=== PATIENT | male | born 1960 | race American Indian/Alaskan Native ===

== ENCOUNTER 2017-06-21 19:28 | Emergency (ER) | payer MEDICARE, MEDICAID, OTHER ==
[2017-06-21] MEDS ORDERED: Sodium Chloride 0.9% 10 ML Syringe FLUSH PRN (19:55)
[2017-06-21] MEDS ORDERED: Acetaminophen 325 MG Tab, 50 Tab Bulk Bottle PO ONE (21:51)
[2017-06-21] MEDS ORDERED: Acetaminophen 500 MG Tab PO ONE (21:55)
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
[2017-06-21 22:57] VITALS: BP 134/92
--- NOTE | 2017-06-22 08:51 | CR ---
Chest 1V Frontal HISTORY: Chest pain. Comparison: 02/16/2015. FINDINGS: Cardiac size and pulmonary vessels are normal. The lungs are clear. IMPRESSION: Negative AP chest.
== END 2017-06-21 22:58 | disposition home or self-care (01) ==
LOC: JP.ED 19:28
DX: R55 Syncope and collapse (principal); E10.9 Type 1 diabetes mellitus without complications; R51 Headache; Z79.84 Long term (current) use of oral hypoglycemic drugs; Z79.899 Other long term (current) drug therapy
CPT/HCPCS: 36415; 70450; 71010; 72125; 80053; 80305; 81001; 84484; 85025; 93005; 99284; A9270; 93010; 99283

== ENCOUNTER 2019-12-27 14:08 | Emergency (ER) | payer MEDICARE, MEDICAID ==
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
[2019-12-27 15:30] VITALS: PULSE 84
[2019-12-27] MEDS ORDERED: Sodium Chloride 0.9% 1,000 ML IV SCH (16:15)
[2019-12-27] MEDS ORDERED: diphenhydrAMINE 50 MG/ML SDV IVPUSH ONE (17:04)
[2019-12-27 17:12] VITALS: BP 137/88
[2019-12-27] MEDS ORDERED: Sodium Chloride 0.9% 10 ML Syringe FLUSH ONE (17:23)
[2019-12-27] MEDS ORDERED: Iopamidol 612 MG/ML 150 ML Bottle IV SCH (17:30)
--- NOTE | 2019-12-27 18:35 | CRLCT ---
INDICATION: abdominal pain, cramping CT ABDOMEN AND PELVIS WITH CONTRAST TECHNIQUE: Multidetector CT imaging was performed through the abdomen and pelvis following intravenous contrast administration using 150 mL Isovue-300. Coronal and sagittal reconstructions were generated. COMPARISON: None. FINDINGS: Lower chest: Lung bases are clear. Liver: Diffuse fatty infiltration of the liver. Gallbladder and bile ducts: No gallbladder wall thickening or calcified gallstones. No biliary dilation identified. Pancreas: Unremarkable. Spleen: Normal. Adrenals: No nodules or masses. Kidneys, ureters, and urinary bladder: Tiny cortical cyst of the left kidney. No solid renal masses or hydronephrosis. Limited evaluation of the bladder due to artifact from hip prostheses. No obvious bladder mass or definite wall thickening. Gastrointestinal tract: Normal caliber bowel without wall thickening or obstruction. The appendix is normal. Vascular structures: Normal caliber abdominal aorta with minimal atherosclerotic calcifications. Peritoneum: No free air, abscess, or significant free fluid. Lymph nodes: No pathologically enlarged nodes identified. Reproductive organs: Prostate region obscured by artifact from hip prostheses. Bones: Spinal degenerative changes. Bilateral hip prostheses. IMPRESSION: 1. No acute abnormality identified. No cause for the patient`s symptoms is demonstrated. 2. Nonacute findings as detailed above. Please note that all CT scans at this facility use dose modulation, iterative reconstruction, and\or weight-based dosing when appropriate to reduce radiation to as low as reasonably achievable. ONEAL FREEMAN MD [facility] Dictated by Aditya Freeman MD @ 12/27/2019 6:31:24 PM Dictated by: Aditya Freeman MD @ 12/27/2019 18:33:31 (Electronically Signed) [facility]ITAL[facility]ukhsana
--- NOTE | 2019-12-29 10:26 | CR ---
CHEST: 2 view CLINICAL HISTORY:Abdominal pain COMPARISON:2017 FINDINGS: The heart size, pulmonary vascularity and hilar structures are normal. No infiltrate effusion or pneumothorax is seen. IMPRESSION: No acute cardiopulmonary process.
== END 2019-12-27 18:42 | disposition home or self-care (01) ==
LOC: JP.ED 14:08
DX: R25.2 Cramp and spasm (principal); E11.9 Type 2 diabetes mellitus without complications; F31.9 Bipolar disorder, unspecified; E66.9 Obesity, unspecified; Z68.36 Body mass index [BMI] 36.0-36.9, adult; Z79.899 Other long term (current) drug therapy; Z87.891 Personal history of nicotine dependence
CPT/HCPCS: 36415; 71046; 74177; 80053; 83735; 85025; 85379; 99283; 99285; J7030; J7050; Q9967

== ENCOUNTER 2019-12-29 12:15 | Inpatient (IN) | payer MEDICARE, MEDICAID ==
[2019-12-29] MEDS ORDERED: OLANZapine 5 MG Tab PO ONE (12:48)
[2019-12-29] MEDS ORDERED: Ondansetron 4 MG Tab.DIS PO ONE (12:51)
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
[2019-12-29] MEDS ORDERED: Sodium Chloride 0.9% 1,000 ML IV ONE (13:11)
[2019-12-29] MEDS ORDERED: Escitalopram 20 MG Tab PO ONE (13:21)
[2019-12-29] MEDS ORDERED: LORazepam 1 MG Tab PO ONE (13:48)
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
[2019-12-29] MEDS ORDERED: Ondansetron 4 MG Tab.DIS PO PRN (14:27)
[2019-12-29] MEDS ORDERED: Ondansetron 4 MG/2 ML SDV IV PRN (14:27)
[2019-12-29] MEDS ORDERED: Acetaminophen 325 MG Tab PO PRN (14:27)
[2019-12-29] MEDS ORDERED: LORazepam 2 MG/ML SDV IVPUSH PRN (14:27)
[2019-12-29] MEDS ORDERED: Magnesium Hydroxide 400 MG/5 ML Susp 30 ML Cup PO PRN (14:27)
[2019-12-29] MEDS: Sodium Chloride 0.9% 1,000 ML IV SCH ×2 (15:10→23:10)
[2019-12-29] MEDS ORDERED: Pneumococcal Polyvalent-23 Vaccine 0.5 ML SDV IM ONE (15:30)
[2019-12-29] MEDS: LORazepam 1 MG Tab PO SCH (20:15)
[2019-12-29] MEDS: OLANZapine 5 MG Tab PO SCH (20:15)
[2019-12-30] MEDS: OLANZapine 5 MG Tab PO SCH ×2 (08:12→21:20)
[2019-12-30] MEDS: Escitalopram 20 MG Tab PO SCH (08:12)
[2019-12-30] MEDS: LORazepam 1 MG Tab PO SCH ×2 (08:14→21:20)
--- NOTE | 2019-12-30 09:35 | PCM.PN ---
- General Info Date of Service: 12/30/19 Subjective Update: No acute events overnight. Strength is a little better today. He does continue to complain of generalized abdominal pain, mostly in the lateral portions. He says this is a crampy pain and seems to come and go in a spasm- like wave. The pain is less intense today but still moderate in severity. No significant nausea. No vomiting. No fevers. Sodium level has improved with IV fluid hydration and is now in the normal range. Functional Status: Reports: Pain Controlled, Tolerating Diet - Review of Systems General: Denies: Fever Gastrointestinal: Reports: Abdominal Pain - Patient Data Vitals - Most Recent: Last Vital Signs Temp 36.3 C 12/30/19 07:00 Pulse 80 12/30/19 07:00 Resp 16 12/30/19 07:00 BP 127/78 12/30/19 07:00 Pulse Ox 98 12/30/19 07:00 Weight - Most Recent: 102.143 kg I&O - Last 24 Hours: Intake & Output 12/29/19 12/30/19 12/30/19 22:59 06:59 14:59 Intake Total 720 1990 608 Output Total 3000 1000 1200 Balance -2280 990 -592 Lab Results Last 24 Hours: Laboratory Results - last 24 hr 12/29/19 12/29/19 12/29/19 Range/Units 12:45 12:48 12:48 Sodium 116 L* (140-148) mmol/L Potassium 4.3 (3.6-5.2) mmol/L Chloride 84 L (100-108) mmol/L Carbon Dioxide 23 (21-32) mmol/L Anion Gap 13.3 (5.0-14.0) mmol/L BUN 8 (7-18) mg/dL Creatinine 0.8 (0.8-1.3) mg/dL Est Cr Clr Drug Dosing 91.93 mL/min Estimated GFR (MDRD) > 60 (>60) Glucose 116 H (74-106) mg/dL Calcium 8.7 (8.5-10.1) mg/dL Phosphorus (2.5-4.9) mg/dL Magnesium 1.9 (1.8-2.4) mg/dL Vitamin D 25-Hydroxy 24.1 L (30-100) ng/mL Urine Color (YELLOW) Urine Appearance (CLEAR) Urine pH (5.0-8.0) Ur Specific [place] (1.008-1.030) Urine Protein (NEGATIVE) mg/dL Urine Glucose (UA) (NEGATIVE) mg/dL Urine Ketones (NEGATIVE) mg/dL Urine Occult Blood (NEGATIVE) Urine Nitrite (NEGATIVE) Urine Bilirubin (NEGATIVE) Urine Urobilinogen (0.2-1.0) EU/dL Ur Leukocyte Esterase (NEGATIVE) Urine RBC (0-5) Urine WBC (0-5) Ur Epithelial Cells Amorphous Sediment Urine Bacteria Urine Mucus 12/29/19 12/29/19 12/29/19 Range/Units 12:48 13:06 18:56 Sodium 127 L (140-148) mmol/L Potassium (3.6-5.2) mmol/L Chloride (100-108) mmol/L Carbon Dioxide (21-32) mmol/L Anion Gap (5.0-14.0) mmol/L BUN (7-18) mg/dL Creatinine (0.8-1.3) mg/dL Est Cr Clr Drug Dosing mL/min Estimated GFR (MDRD) (>60) Glucose (74-106) mg/dL Calcium (8.5-10.1) mg/dL Phosphorus 2.8 (2.5-4.9) mg/dL Magnesium (1.8-2.4) mg/dL Vitamin D 25-Hydroxy (30-100) ng/mL Urine Color Yellow (YELLOW) Urine Appearance Clear (CLEAR) Urine pH 7.0 (5.0-8.0) Ur Specific [place] 1.010 (1.008-1.030) Urine Protein Negative (NEGATIVE) mg/dL Urine Glucose (UA) Negative (NEGATIVE) mg/dL Urine Ketones Trace H (NEGATIVE) mg/dL Urine Occult Blood Trace-intact H (NEGATIVE) Urine Nitrite Negative (NEGATIVE) Urine Bilirubin Negative (NEGATIVE) Urine Urobilinogen 0.2 (0.2-1.0) EU/dL Ur Leukocyte Esterase Negative (NEGATIVE) Urine RBC 0-5 (0-5) Urine WBC 0-5 (0-5) Ur Epithelial Cells Rare Amorphous Sediment Not seen Urine Bacteria Few Urine Mucus Not seen 12/30/19 Range/Units 05:20 Sodium 138 L (140-148) mmol/L Potassium 4.3 (3.6-5.2) mmol/L Chloride 104 (100-108) mmol/L Carbon Dioxide 24 (21-32) mmol/L Anion Gap 14.3 H (5.0-14.0) mmol/L BUN 8 (7-18) mg/dL Creatinine 0.8 (0.8-1.3) mg/dL Est Cr Clr Drug Dosing 91.93 mL/min Estimated GFR (MDRD) > 60 (>60) Glucose 103 (74-106) mg/dL Calcium 7.7 L (8.5-10.1) mg/dL Phosphorus (2.5-4.9) mg/dL Magnesium (1.8-2.4) mg/dL Vitamin D 25-Hydroxy (30-100) ng/mL Urine Color (YELLOW) Urine Appearance (CLEAR) Urine pH (5.0-8.0) Ur Specific [place] (1.008-1.030) Urine Protein (NEGATIVE) mg/dL Urine Glucose (UA) (NEGATIVE) mg/dL Urine Ketones (NEGATIVE) mg/dL Urine Occult Blood (NEGATIVE) Urine Nitrite (NEGATIVE) Urine Bilirubin (NEGATIVE) Urine Urobilinogen (0.2-1.0) EU/dL Ur Leukocyte Esterase (NEGATIVE) Urine RBC (0-5) Urine WBC (0-5) Ur Epithelial Cells Amorphous Sediment Urine Bacteria Urine Mucus Med Orders - Current: Current Medications Acetaminophen (Tylenol) 650 mg PO Q4H PRN PRN Reason: Pain (Mild 1-3)/fever Escitalopram Oxalate (Lexapro) 20 mg PO DAILY [facility] Last Admin: 12/30/19 08:12 Dose: 20 mg Ibuprofen (Motrin) 600 mg PO Q6H PRN PRN Reason: Pain (moderate 4-6) Lorazepam (Ativan) 1 mg PO BID [facility] Last Admin: 12/30/19 08:14 Dose: 1 mg Lorazepam (Ativan) 0.5 mg IVPUSH Q4H PRN PRN Reason: Nausea/Vomiting Magnesium Hydroxide (Milk Of Magnesia) 30 ml PO Q12H PRN PRN Reason: Constipation Olanzapine (Zyprexa) 5 mg PO DAILY [facility] Last Admin: 12/30/19 08:12 Dose: 5 mg Olanzapine (Zyprexa) 10 mg PO BEDTIME [facility] Last Admin: 12/29/19 20:15 Dose: 10 mg Ondansetron HCl (Zofran Odt) 4 mg PO Q6H PRN PRN Reason: Nausea able to take PO Ondansetron HCl (Zofran) 4 mg IV Q6H PRN PRN Reason: Nausea/Vomiting Pneumococcal Polyvalent Vaccine (Pneumovax 23) 0.5 ml IM .ONCE ONE Stop: 12/30/19 11:01 Senna/Docusate Sodium (Senna Plus) 1 tab PO BID PRN PRN Reason: Constipation Discontinued Medications Escitalopram Oxalate (Lexapro) 20 mg PO ONETIME ONE Stop: 12/29/19 13:22 Last Admin: 12/29/19 13:30 Dose: 20 mg Sodium Chloride (Normal Saline) 1,000 mls @ 1,000 mls/hr IV .BOLUS ONE Stop: 12/29/19 14:10 Last Admin: 12/29/19 13:31 Dose: 1,000 mls/hr Sodium Chloride (Normal Saline) 1,000 mls @ 125 mls/hr IV ASDIRECTED NICKY Last Admin: 12/29/19 23:10 Dose: 125 mls/hr Lorazepam (Ativan) 1 mg PO ONETIME ONE Stop: 12/29/19 13:49 Last Admin: 12/29/19 13:55 Dose: 1 mg Olanzapine (Zyprexa) 5 mg PO ONETIME ONE Stop: 12/29/19 12:49 Last Admin: 12/29/19 12:58 Dose: 5 mg Ondansetron HCl (Zofran Odt) 4 mg PO ONETIME ONE Stop: 12/29/19 12:52 Last Admin: 12/29/19 12:57 Dose: 4 mg - Exam Quality Assessment: No: Supplemental Oxygen General: Alert, Oriented, Cooperative, No Acute Distress Lungs: Normal Respiratory Effort Cardiovascular: Regular Rate, Regular Rhythm GI/Abdominal Exam: Soft, No Distention, Tender (both flanks ) Extremities: No Pedal Edema Psy/Mental Status: Alert, Normal Affect Sepsis Event Note - Evaluation Sepsis Screening Result: No Definite Risk - Focused Exam Vital Signs: Vital Signs Temp Pulse Resp BP BP Pulse Ox 12/30/19 07:00 36.3 C 80 16 127/78 98 12/30/19 03:08 36.6 C 73 18 125/81 98 12/29/19 22:32 36.4 C 76 16 114/65 96 Date Exam was Performed: 12/30/19 Time Exam was Performed: 14:28 - Problem List & Annotations (1) Hyponatremia SNOMED Code(s): 90475882 Code(s): E87.1 - HYPO-OSMOLALITY AND HYPONATREMIA Status: Acute Current Visit: Yes - Problem List Review Problem List Initiated/Reviewed/Updated: Yes - My Orders Last 24 Hours: My Active Orders 12/29/19 13:55 Resuscitation Status Routine 12/29/19 14:27 Patient Status [ADT] Routine Antiembolic Devices [RC] .Routine Intake and Output [RC] QSHIFT Notify Provider Vital Signs [RC] ASDIRECTED Oxygen Therapy [RC] PRN Up With Assistance [RC] ASDIRECTED VTE/DVT Education [RC] Per Unit Routine Vital Signs [RC] Q4H Acetaminophen [Tylenol] 650 mg PO Q4H PRN Docusate Sodium/Sennosides [Senna Plus] 1 tab PO BID PRN LORazepam [Ativan] 0.5 mg IVPUSH Q4H PRN Magnesium Hydroxide [Milk of Magnesia] 30 ml PO Q12H PRN Ondansetron [Zofran ODT] 4 mg PO Q6H PRN Ondansetron [Zofran] 4 mg IV Q6H PRN Sequential Compression Device [OM.PC] Routine 12/29/19 21:00 LORazepam [Ativan] 1 mg PO BID OLANZapine [ZyPREXA] 10 mg PO BEDTIME 12/29/19 Dinner Regular Diet [DIET] 12/30/19 09:00 Escitalopram [Lexapro] 20 mg PO DAILY OLANZapine [ZyPREXA] 5 mg PO DAILY 12/30/19 09:33 Ibuprofen [Motrin] 600 mg PO Q6H PRN tiZANidine [Zanaflex] 4 mg PO Q6H PRN Convert IV to Saline Lock [OM.PC] Routine 12/30/19 11:00 Pneumococcal Polyvalent-23 Vac [Pneumovax 23] 0.5 ml IM .ONCE ONE 12/31/19 05:00 BASIC METABOLIC PANEL,BMP [CHEM] Timed CBC W/O DIFF,HEMOGRAM [HEME] Timed (1) - Plan Plan:: ASSESSMENT AND PLAN - Hyponatremia-level has improved with IV fluid hydration and restarting his usual home medications. Symptoms improving but still having some muscle spasms which limit his ability to get around. -Saline lock IV -Trial of muscle relaxer -Recheck sodium in the morning -Continue home medications Maintenance issues - - DVT prophylaxis -mechanical - GI prophylaxis -not indicated - Nutrition -regular Disposition -I would anticipate discharge home after the hospital stay, likely tomorrow if stable overnight Primary care physician - [facility] Denys Mo M.D.
[2019-12-30] MEDS ORDERED: Pneumococcal Polyvalent-23 Vaccine 0.5 ML SDV IM ONE (11:00)
[2019-12-30] MEDS: Ibuprofen 600 MG Tab PO PRN ×2 (11:57→21:22)
[2019-12-30] MEDS: tiZANidine 4 MG Tab PO PRN (11:58)
[2019-12-31 08:24] VITALS: BP 145/85; PULSE 88
[2019-12-31] MEDS: tiZANidine 4 MG Tab PO PRN (08:24)
[2019-12-31] MEDS: LORazepam 1 MG Tab PO SCH (08:24)
[2019-12-31] MEDS: Ibuprofen 600 MG Tab PO PRN (08:24)
[2019-12-31] MEDS: Escitalopram 20 MG Tab PO SCH (08:25)
[2019-12-31] MEDS: OLANZapine 5 MG Tab PO SCH (08:26)
--- NOTE | 2019-12-31 10:29 | PCM.DCSUM1 ---
Discharge Summary - Hospital Course Brief History: 59-year-old male with history of depression and anxiety who presented with nausea and abdominal cramps. He was admitted for management of hyponatremia thought secondary to withdrawal from his home medications including SSRI and benzodiazepines. Diagnosis: Stroke: No - Discharge Data Discharge Date: 12/31/19 Discharge Disposition: Home, Self-Care 01 Condition: Good - Referral to Home Health Primary Care Physician: PCP None - Discharge Diagnosis/Problem(s) (1) Hyponatremia SNOMED Code(s): 07227765 ICD Code: E87.1 - HYPO-OSMOLALITY AND HYPONATREMIA Status: Acute - Patient Summary/Data Hospital Course: Ismael presented to the emergency room with nausea, vomiting and abdominal cramping. Symptoms had progressed over the past several days. He was unable to keep anything down so he came back to the emergency room for evaluation. Work-up in the emergency room did reveal a sodium level of 116 which was down from 125 3 days prior. He appeared to be euvolemic or close to it based on examination. Previous extensive work-up had been fairly unremarkable. There was concern that he may be in a withdrawal syndrome from his medications which she had ran out of about 1 week prior to presentation. We restarted his usual home medications and gave him some IV fluids. His sodium level steadily david over the next 24 hours and then normalized. His nausea resolved fairly quickly. His abdominal cramps did continue but by the morning of discharge had completely resolved. His sodium level is normal. He tolerated a regular diet. He has been up and walking around without difficulty. He does have refills of his usual home medications available at this time. I believe he is stable and safe for discharge at this point. - Patient Instructions Diet: Regular Diet as Tolerated Activity: As Tolerated Driving: May Drive Today Showering/Bathing: May Shower Notify Provider of: Fever, Increased Pain, Nausea and/or Vomiting Other/Special Instructions: 1. You were in the hospital for management of a low sodium level that I believe was caused because of withdrawal from your usual home medications. Your sodium level and symptoms of nausea and muscle cramps improved quickly with hydration, normalization of your sodium level and restarting your usual home medications. It will be important in the future to do your very best to avoid running out of the medications to avoid a return of these symptoms. 2. During the emergency room work-up you had a thorough work- up including laboratory studies, chest x-ray and a CT scan of the abdomen and pelvis. At this time there is no evidence for leukemia, intra-abdominal cancer or lung cancer based on our available information. - Discharge Plan *PRESCRIPTION DRUG MONITORING PROGRAM REVIEWED*: Not Applicable *COPY OF PRESCRIPTION DRUG MONITORING REPORT IN PATIENT BURT: Not Applicable Home Medications: Home Meds LORazepam 1 mg PO BID 10/15/13 [History] Triamcinolone Acetonide [Kenalog 0.1% Crm] 1 applic TOP BID PRN 10/15/13 [ History] Escitalopram [Lexapro] 20 mg PO DAILY 12/27/19 [History] OLANZapine [Olanzapine] 5 mg PO DAILY 12/27/19 [History] OLANZapine [Olanzapine] 10 mg PO BEDTIME 12/29/19 [History] Oxygen Therapy Mode: Room Air Patient Handouts: Muscle Cramps and Spasms, [id number] Referrals: Harry Chaudhry MD [Physician] - 01/07/20 1:30 pm (1 to 2 [id number] hospital stay for hyponatremia Please arrive 15 minutes early to register for your appointment.) - Discharge Summary/Plan Comment DC Time >30 min.: No - Patient Data Vitals - Most Recent: Last Vital Signs Temp 36.6 C 12/31/19 08:22 Pulse 88 12/31/19 08:22 Resp 16 12/31/19 08:22 BP 145/85 H 12/31/19 08:22 Pulse Ox 97 12/31/19 08:22 Weight - Most Recent: 102.058 kg I&O - Last 24 hours: Intake & Output 12/30/19 12/31/19 12/31/19 22:59 06:59 14:59 Intake Total 1800 Output Total 500 500 Balance 1300 -500 Lab Results - Last 24 hrs: Laboratory Results - last 24 hr 12/31/19 12/31/19 Range/Units 05:42 05:42 WBC 11.8 H (4.5-11.0) K/uL RBC 5.11 (4.30-5.90) M/uL Hgb 15.1 H (12.0-15.0) g/dL Hct 45.3 (40.0-54.0) % MCV 89 (80-98) fL MCH 30 (27-31) pg MCHC 33 (32-36) % Plt Count 324 (150-400) K/uL Sodium 140 (140-148) mmol/L Potassium 4.2 (3.6-5.2) mmol/L Chloride 106 (100-108) mmol/L Carbon Dioxide 25 (21-32) mmol/L Anion Gap 9.1 (5.0-14.0) mmol/L BUN 10 (7-18) mg/dL Creatinine 1.0 (0.8-1.3) mg/dL Est Cr Clr Drug Dosing 73.55 mL/min Estimated GFR (MDRD) > 60 (>60) Glucose 115 H (74-106) mg/dL Calcium 8.0 L (8.5-10.1) mg/dL Med Orders - Current: Current Medications Acetaminophen (Tylenol) 650 mg PO Q4H PRN PRN Reason: Pain (Mild 1-3)/fever Last Admin: 12/30/19 16:00 Dose: 650 mg Escitalopram Oxalate (Lexapro) 20 mg PO DAILY [facility] Last Admin: 12/31/19 08:25 Dose: 20 mg Ibuprofen (Motrin) 600 mg PO Q6H PRN PRN Reason: Pain (moderate 4-6) Last Admin: 12/31/19 08:24 Dose: 600 mg Lorazepam (Ativan) 1 mg PO BID [facility] Last Admin: 12/31/19 08:24 Dose: 1 mg Lorazepam (Ativan) 0.5 mg IVPUSH Q4H PRN PRN Reason: Nausea/Vomiting Magnesium Hydroxide (Milk Of Magnesia) 30 ml PO Q12H PRN PRN Reason: Constipation Olanzapine (Zyprexa) 5 mg PO DAILY [facility] Last Admin: 12/31/19 08:26 Dose: 5 mg Olanzapine (Zyprexa) 10 mg PO BEDTIME [facility] Last Admin: 12/30/19 21:20 Dose: 10 mg Ondansetron HCl (Zofran Odt) 4 mg PO Q6H PRN PRN Reason: Nausea able to take PO Ondansetron HCl (Zofran) 4 mg IV Q6H PRN PRN Reason: Nausea/Vomiting Senna/Docusate Sodium (Senna Plus) 1 tab PO BID PRN PRN Reason: Constipation Tizanidine HCl (Zanaflex) 4 mg PO Q6H PRN PRN Reason: Muscle Spasm Last Admin: 12/31/19 08:24 Dose: 4 mg Discontinued Medications Escitalopram Oxalate (Lexapro) 20 mg PO ONETIME ONE Stop: 12/29/19 13:22 Last Admin: 12/29/19 13:30 Dose: 20 mg Sodium Chloride (Normal Saline) 1,000 mls @ 1,000 mls/hr IV .BOLUS ONE Stop: 12/29/19 14:10 Last Admin: 12/29/19 13:31 Dose: 1,000 mls/hr Sodium Chloride (Normal Saline) 1,000 mls @ 125 mls/hr IV ASDIRECTED [facility]ICKY Last Admin: 12/29/19 23:10 Dose: 125 mls/hr Lorazepam (Ativan) 1 mg PO ONETIME ONE Stop: 12/29/19 13:49 Last Admin: 12/29/19 13:55 Dose: 1 mg Olanzapine (Zyprexa) 5 mg PO ONETIME ONE Stop: 12/29/19 12:49 Last Admin: 12/29/19 12:58 Dose: 5 mg Ondansetron HCl (Zofran Odt) 4 mg PO ONETIME ONE Stop: 12/29/19 12:52 Last Admin: 12/29/19 12:57 Dose: 4 mg Pneumococcal Polyvalent Vaccine (Pneumovax 23) 0.5 ml IM .ONCE ONE Stop: 12/30/19 11:01 Last Admin: 12/30/19 11:55 Dose: 0.5 ml - Exam Quality Assessment: Denies: Supplemental Oxygen General: Reports: Alert, Oriented, Cooperative, No Acute Distress Lungs: Reports: Normal Respiratory Effort Cardiovascular: Reports: Regular Rate, Regular Rhythm GI/Abdominal Exam: Soft, No Distention Extremities: No Pedal Edema Psy/Mental Status: Reports: Alert, Normal Affect
== END 2019-12-31 11:45 | disposition home or self-care (01) | DRG 641 ==
LOC: JP.ED 12:15 → JP.MS 13:49
PROVIDERS: ADMIT Internal Medicine; ATTEND Internal Medicine
PROC: 3E0234Z Introduction of Serum, Toxoid and Vaccine into Muscle, Percutaneous Approach (ICD-10-PCS; principal; 2019-12-30)
DX: E87.1 Hypo-osmolality and hyponatremia (principal); R10.9 Unspecified abdominal pain; F19.939 Other psychoactive substance use, unspecified with withdrawal, unspecified; F41.9 Anxiety disorder, unspecified; F31.9 Bipolar disorder, unspecified; M19.90 Unspecified osteoarthritis, unspecified site; E66.9 Obesity, unspecified; E11.9 Type 2 diabetes mellitus without complications; Z79.899 Other long term (current) drug therapy; Z87.891 Personal history of nicotine dependence; Z23 Encounter for immunization; Z68.36 Body mass index [BMI] 36.0-36.9, adult
CPT/HCPCS: 36415; 80048; 81001; 82306; 83735; 84100; 99284; A9270 ×3; J7030; 84295; 85027; 90732; G0009